=== PATIENT | male | born 1995 | race American Indian/Alaskan Native ===

== ENCOUNTER 2019-03-24 16:08 | Emergency (ER) | payer SELFPAY ==
[2019-03-24 16:42] VITALS: BP 155/88
[2019-03-24] MEDS ORDERED: SODIUM CHLORIDE 0.9% 1000 ML 1,000 ML IV ONE (17:51)
== END 2019-03-24 18:20 | disposition left against medical advice (07) ==
LOC: ED 16:08
DX: R11.2 Nausea with vomiting, unspecified (principal); Z53.21 Procedure and treatment not carried out due to patient leaving prior to being seen by health care provider